=== PATIENT | female | born 1965 | race Caucasian/White ===

== ENCOUNTER 2019-01-10 14:15 | Inpatient (IN) | payer MEDICARE, MEDICAID ==
[2019-01-13] MEDS ORDERED: Dextrose 5%-Lactated Ringers 1,000 ML IV SCH ×2 (08:00→08:45)
[2019-01-13] MEDS ORDERED: Gabapentin 300 MG Cap PO ONE ×2 (08:00→08:45)
[2019-01-13] MEDS ORDERED: Acetaminophen 500 MG Tab PO ONE ×2 (08:00→08:45)
[2019-01-13] MEDS ORDERED: Celecoxib 200 MG Cap PO ONE ×2 (08:00→08:45)
[2019-01-13] MEDS ORDERED: cefOXitin 2 GM in Sodium Chloride 0.9% 50 ML IV ONE (10:15)
[2019-01-13] MEDS ORDERED: fentaNYL 250 MCG/5 ML SDV ONE ×2 (10:24→11:52)
[2019-01-13] MEDS ORDERED: Ondansetron 4 MG/2 ML SDV ONE (10:25)
[2019-01-13] MEDS ORDERED: Propofol 200 MG/20 ML SDV ONE (10:25)
[2019-01-13] MEDS ORDERED: Neostigmine Methylsulfate 1 MG/ML 5 ML Syringe ONE (10:25)
[2019-01-13] MEDS ORDERED: Glycopyrrolate 0.2 MG/ML 5 ML MDV ONE (10:25)
[2019-01-13] MEDS ORDERED: Rocuronium 50 MG/5 ML Vial ONE ×2 (10:25→12:40)
[2019-01-13] MEDS ORDERED: Dexamethasone 4 MG/ML SDV ONE (10:25)
[2019-01-13] MEDS ORDERED: Succinylcholine 200 MG/10 ML MDV ONE (10:25)
[2019-01-13] MEDS ORDERED: Ketamine 500 MG/5 ML MDV IV SCH (10:30)
[2019-01-13] MEDS ORDERED: Lidocaine 2% 100 MG/5 ML Syringe IVPUSH SCH (10:30)
[2019-01-13] MEDS ORDERED: Ketamine 50 MG in Sodium Chloride 0.9% 49.5 ML IV SCH (10:30)
[2019-01-13] MEDS ORDERED: Meropenem 500 MG SDV ONE (12:06)
[2019-01-13] MEDS ORDERED: ePHEDrine 50 MG/ML SDV ONE (12:16)
[2019-01-13] MEDS: Tranexamic Acid 1,000 MG in Sodium Chloride 0.9% 50 ML IV ONE ×2 (13:00→16:00)
[2019-01-13] MEDS ORDERED: diphenhydrAMINE 50 MG/ML SDV IVPUSH PRN ×2 (14:27→15:53)
[2019-01-13] MEDS ORDERED: Ondansetron 4 MG/2 ML SDV IVPUSH PRN ×2 (14:27→15:53)
[2019-01-13] MEDS ORDERED: Naloxone 0.4 MG/ML SDV IVPUSH PRN (14:27)
[2019-01-13] MEDS ORDERED: diphenhydrAMINE 25 MG Cap PO PRN (14:27)
[2019-01-13] MEDS ORDERED: Naloxone 0.4 MG/ML SDV IV PRN (14:30)
[2019-01-13] MEDS: HYDROmorphone/Normal Saline 15 MG/30 ML PCA IV PRN (14:41)
[2019-01-13] MEDS ORDERED: hydrOXYzine HCL 100 MG/2 ML SDV IM ONE (14:48)
[2019-01-13] MEDS: Lidocaine 0.4%/D5W 2 GM/500 ML BAG IV SCH (15:42)
[2019-01-13] MEDS ORDERED: Metoclopramide 10 MG/2 ML SDV IVPUSH PRN (15:53)
[2019-01-13] MEDS ORDERED: Labetalol 20 MG/4 ML Syringe IVPUSH PRN (15:53)
[2019-01-13] MEDS: Cyclobenzaprine 10 MG Tab PO PRN (15:59)
[2019-01-13] MEDS ORDERED: Tranexamic Acid 1,000 MG in Sodium Chloride 0.9% 50 ML IV ONE (16:30)
[2019-01-13] MEDS ORDERED: MVI, Adult with Vitamin K 10 ML, Thiamine 200 MG, Chromium/Copper/Mang/Selen/Zn 1 ML in... IV SCH ×4 (17:00)
[2019-01-13] MEDS ORDERED: Scopolamine 1.5 MG Transdermal Patch TOP SCH (17:00)
[2019-01-13] MEDS: Acetaminophen Soln 650 MG/20.3 ML UD Cup PO SCH ×2 (17:10→23:37)
[2019-01-13] MEDS: cefOXitin 2 GM in Sodium Chloride 0.9% 50 ML IV SCH ×2 (17:20→23:36)
[2019-01-13] MEDS ORDERED: Pantoprazole 40 MG Vial IVPUSH SCH (18:00)
[2019-01-13] MEDS: hydrOXYzine HCL 100 MG/2 ML SDV IM PRN (20:17)
[2019-01-13] MEDS: Heparin Sodium 5,000 Units/ML Vial SUBCUT SCH (20:25)
[2019-01-13] MEDS: Gabapentin 250 MG/5 ML Solution ML 470 ML Bottle PO SCH (20:25)
[2019-01-13] MEDS: Dextrose 5%-Lactated Ringers 1,000 ML IV SCH (23:37)
[2019-01-14] MEDS: Cyclobenzaprine 10 MG Tab PO PRN ×2 (00:56→10:00)
[2019-01-14] MEDS: hydrOXYzine HCL 100 MG/2 ML SDV IM PRN (00:57)
[2019-01-14] MEDS ORDERED: Iopamidol 612 MG/ML 50 ML SDV PO ONE (04:06)
[2019-01-14] MEDS: Dextrose 5%-Lactated Ringers 1,000 ML IV SCH (05:14)
[2019-01-14] MEDS: Acetaminophen Soln 650 MG/20.3 ML UD Cup PO SCH ×4 (05:14→23:00)
[2019-01-14] MEDS: cefOXitin 2 GM in Sodium Chloride 0.9% 50 ML IV SCH ×4 (05:14→23:00)
--- NOTE | 2019-01-14 05:27 | CRLCR ---
Indication: Revision of Shira-en-Y Technique: Two frontal views of the abdomen obtained following ingestion of iodinated contrast agent and 0 and 15 minutes delays. Comparison: None Findings/Impression: There is transit of oral contrast through the stomach and into the small bowel. No extravasated extraluminal contrast is appreciated. Surgical drains are in place. Skin alexis overlie the abdomen. Dictated by Erna Vargas MD @ Jan 14 2019 5:25AM Signed by Dr. Erna Vargas @ Jan 14 2019 5:25AM
[2019-01-14] MEDS ORDERED: Ondansetron 4 MG Tab.DIS PO PRN (08:01)
[2019-01-14] MEDS ORDERED: Dextrose 5%-Lactated Ringers 1,000 ML IV SCH ×2 (08:02→08:45)
[2019-01-14] MEDS ORDERED: Cyclobenzaprine 10 MG Tab PO PRN (08:04)
[2019-01-14] MEDS ORDERED: Docusate Sodium 100 MG Cap PO PRN (08:04)
[2019-01-14] MEDS: Celecoxib 200 MG Cap PO SCH (09:00)
[2019-01-14] MEDS ORDERED: Non-Formulary Medication 1 Each (Aripiprazole [Abilify] 20 MG) PO SCH (09:00)
[2019-01-14] MEDS ORDERED: Non-Formulary Medication 1 Each (Buspirone [Buspar] 15 MG) PO SCH (09:00)
[2019-01-14] MEDS ORDERED: ARIPiprazole 10 MG Tab PO SCH (09:00)
[2019-01-14] MEDS: busPIRone 10 MG, busPIRone 5 MG PO SCH ×4 (09:01→20:37)
[2019-01-14] MEDS: Heparin Sodium 5,000 Units/ML Vial SUBCUT SCH ×2 (09:01→20:34)
[2019-01-14] MEDS: DULoxetine 20 MG Cap PO SCH (09:01)
[2019-01-14] MEDS: SCOPOLAMINE PATCH CHECK TOP SCH (09:02)
[2019-01-14] MEDS: Gabapentin 250 MG/5 ML Solution ML 470 ML Bottle PO SCH ×3 (09:05→20:34)
[2019-01-14] MEDS ORDERED: Sodium Ferric Gluconate Cmplex 250 MG in Sodium Chloride 0.9% 100 ML IV SCH (10:00)
--- NOTE | 2019-01-14 11:46 | PN ---
DATE OF SERVICE: 01/14/2019 SUBJECTIVE: Naty is postop day #1. Her upper GI was normal. Vital signs have been stable. She has been up, ambulating. She has used her incentive spirometer. She has no other concerns or questions today. OBJECTIVE: GENERAL: Naty Bradley is a 53-year-old female. VITAL SIGNS: TPR is 98.7, 83, 18. Blood pressure 139/56. HEENT: Negative. NECK: Supple. HEART: Regular rate and rhythm. LUNGS: Clear. ABDOMEN: Dressings dry and intact. Abdominal binder is on. EXTREMITIES: Without peripheral edema. ASSESSMENT: Exploratory laparotomy and lysis of adhesions: 1. Esophagogastrectomy with Shira-en-Y. 2. Repair of recurrent incarcerated inguinal hernia. 3. Placement of intraperitoneal mesh for persistent marginal ulcers at and around the jejunojejunostomy junction with extensive scarring. 4. Recurrent incisional hernia. 5. Placement of intraperitoneal mesh. Date of surgery, 01/13/2019. Surgeon, Yazan Porter MD. PLAN: 1. Decrease IV to 100 mL per hour. 2. Discontinue Murphy. 3. Step 2 gastric bypass diet with no cereal. 4. Dietary consult, which is already ordered. The patient is lactose intolerance. 5. Abilify 20 mg daily. 6. BuSpar 15 mg p.o. b.i.d. 7. Flexeril 10 mg p.o. t.i.d. p.r.n. muscle spasm. 8. Colace 100 mg b.i.d. p.r.n. 9. Sinequan (doxepin) 20 mg p.o. at bedtime. 10.Cymbalta 20 mg daily. 11.Lactaid 3000-unit tablets 1 three times a day with meals. 12.Levothyroxine 25 mcg p.o. before breakfast. 13.Prazosin (Minipress) 1 mg capsule at bedtime. 14.Good pulmonary toilet. 15.We will evaluate p.r.n. or in a.m. Jessica Sierra PA-C /[id number]
[2019-01-14] MEDS ORDERED: LACTASE PO SCH (12:00)
[2019-01-14] MEDS: Lidocaine 0.4%/D5W 2 GM/500 ML BAG IV SCH (12:18)
[2019-01-14] MEDS: LACTAID PO SCH ×2 (12:24→16:37)
[2019-01-14] MEDS ORDERED: Benzocaine/Cetylpyridinium/Menthol Lozenge MUCMEM PRN (13:32)
[2019-01-14] MEDS: Sodium Ferric Gluconate Cmplex 250 MG in Sodium Chloride 0.9% 100 ML IV SCH (14:14)
[2019-01-14] MEDS ORDERED: MVI, Adult with Vitamin K 10 ML, Thiamine 200 MG, Chromium/Copper/Mang/Selen/Zn 1 ML in... IV SCH ×4 (16:00)
[2019-01-14] MEDS: Pantoprazole 40 MG Delayed-Release Granules 1 Packet PO SCH (16:38)
[2019-01-14] MEDS: Doxepin 10 MG Cap PO SCH (20:35)
[2019-01-14] MEDS: Prazosin 1 MG Cap PO SCH (20:35)
[2019-01-14] MEDS: HYDROmorphone/Normal Saline 15 MG/30 ML PCA IV PRN (20:50)
[2019-01-15] MEDS: Cyclobenzaprine 10 MG Tab PO PRN ×2 (03:16→12:07)
[2019-01-15] MEDS: cefOXitin 2 GM in Sodium Chloride 0.9% 50 ML IV SCH ×2 (05:38→13:17)
[2019-01-15] MEDS: Acetaminophen Soln 650 MG/20.3 ML UD Cup PO SCH ×4 (05:38→23:39)
[2019-01-15] MEDS ORDERED: Dextrose 5%-Lactated Ringers 1,000 ML IV SCH (08:09)
[2019-01-15] MEDS: busPIRone 10 MG, busPIRone 5 MG PO SCH ×4 (08:26→20:44)
[2019-01-15] MEDS: Celecoxib 200 MG Cap PO SCH (08:26)
[2019-01-15] MEDS: Levothyroxine 25 MCG Tab PO SCH (08:26)
[2019-01-15] MEDS: DULoxetine 20 MG Cap PO SCH (08:27)
[2019-01-15] MEDS: LACTAID PO SCH ×3 (08:27→18:17)
[2019-01-15] MEDS: Heparin Sodium 5,000 Units/ML Vial SUBCUT SCH ×2 (08:27→20:44)
[2019-01-15] MEDS: SCOPOLAMINE PATCH CHECK TOP SCH (08:28)
[2019-01-15] MEDS: Gabapentin 250 MG/5 ML Solution ML 470 ML Bottle PO SCH ×3 (08:31→20:43)
[2019-01-15] MEDS ORDERED: Cyanocobalamin (Vitamin B12) 1,000 MCG/ML SDV IM ONE (09:00)
--- NOTE | 2019-01-15 11:23 | PN ---
DATE OF SERVICE: 01/15/2019 SUBJECTIVE: Naty is postoperative day #2. She has been afebrile. Oral intake, step 2 gastric bypass diet without cereal, 2160. Urine output 2300. ANNE drains 1, 2, and 3 put out 80, 115, and 80. The 2 ANNE drains have bile in them which was to be expected. REVIEW OF SYSTEMS: Remainder of review of systems negative for any pertinent positives and negatives. OBJECTIVE: GENERAL: Naty Bradley is a 53-year-old female. VITAL SIGNS: TPR is 96.9, 70, 19. Blood pressure 114/61. These vital signs are from 0300. HEENT: Negative. HEART: Regular rate and rhythm. LUNGS: Clear. ABDOMEN: Dressings dry and intact. Three ANNE drains as noted above. EXTREMITIES: Without peripheral edema. ASSESSMENT: Exploratory laparotomy and lysis of adhesions: 1. Esophagogastrectomy with Shira-en-Y. 2. Repair of recurrent incarcerated inguinal hernia. 3. Placement of intraperitoneal mesh for persistent marginal ulcers at and around the jejunojejunostomy junction with extensive scarring. 4. Recurrent incisional hernia. 5. Placement of intraperitoneal mesh. Date of surgery, 01/13/2019. Surgeon, Yazan Porter MD. PLAN: 1. Teach the patient to strip, empty, measure, and record ANNE drains each separately. 2. Saline lock IV, but the patient is requesting to keep STEAM TENDER going for pain control. 3. Continue to ambulate and use incentive spirometer. 4. We will evaluate p.r.n. or in a.m. Jessica Sierra PA-C /[id number]
[2019-01-15] MEDS: Sodium Ferric Gluconate Cmplex 250 MG in Sodium Chloride 0.9% 100 ML IV SCH (15:26)
[2019-01-15] MEDS: Pantoprazole 40 MG Delayed-Release Granules 1 Packet PO SCH (15:37)
[2019-01-15] MEDS: Doxepin 10 MG Cap PO SCH (20:44)
[2019-01-15] MEDS: Prazosin 1 MG Cap PO SCH (20:45)
[2019-01-16] MEDS: Acetaminophen Soln 650 MG/20.3 ML UD Cup PO SCH ×4 (06:15→23:23)
[2019-01-16] MEDS: Levothyroxine 25 MCG Tab PO SCH (07:36)
[2019-01-16] MEDS ORDERED: Magnesium Hydroxide 400 MG/5 ML Susp 30 ML Cup PO ONE (09:00)
[2019-01-16] MEDS: DULoxetine 20 MG Cap PO SCH (09:02)
[2019-01-16] MEDS: busPIRone 10 MG, busPIRone 5 MG PO SCH ×4 (09:02→20:33)
[2019-01-16] MEDS: LACTAID PO SCH ×3 (09:02→16:09)
[2019-01-16] MEDS: Celecoxib 200 MG Cap PO SCH (09:02)
[2019-01-16] MEDS: Heparin Sodium 5,000 Units/ML Vial SUBCUT SCH ×2 (09:03→20:35)
[2019-01-16] MEDS: Gabapentin 250 MG/5 ML Solution ML 470 ML Bottle PO SCH ×3 (09:03→20:48)
[2019-01-16] MEDS ORDERED: Bisacodyl 5 MG Tab PO ONE (10:00)
--- NOTE | 2019-01-16 13:12 | PN ---
DATE OF SERVICE: 01/16/2019 SUBJECTIVE: Naty's IV infiltrated. She was switched to oral pain medication. She remains to have bile in 2 of those ANNE drains. The patient was taught to do home ANNE drain care. OBJECTIVE: VITAL SIGNS: Have been stable. She has been afebrile. Oral intake 0, and urine output 2024. ANNE drains have put out 65, 70, and 25 and color as above. HEENT: Negative. NECK: Supple. HEART: Regular rate and rhythm. LUNGS: Clear. ABDOMEN: Dressings dry and intact. ANNE drains as above and abdominal binder is on. EXTREMITIES: Without peripheral edema. ASSESSMENT: Exploratory laparotomy and lysis of adhesions: 1. Esophagogastrectomy with Shira-en-Y. 2. Repair of recurrent incarcerated inguinal hernia. 3. Placement of intraperitoneal mesh for persistent marginal ulcers at and around the jejunojejunostomy junction with extensive scarring. 4. Recurrent incisional hernia. 5. Placement of intraperitoneal mesh. Date of surgery, 01/13/2019. Surgeon, Yazan Porter MD. PLAN: 1. Continue to teach ANNE drain. 2. Plan discharge in a.m. 3. Continue to work on incentive spirometer and ambulate. 4. We will evaluate p.r.n. or in a.m. 5. The patient will be given milk of magnesia 30 mL, followed in 1 hour by Dulcolax 20 mg tab. Jessica Sierra PA-C /[id number]
[2019-01-16] MEDS: Pantoprazole 40 MG Delayed-Release Granules 1 Packet PO SCH (15:33)
[2019-01-16] MEDS: Cyclobenzaprine 10 MG Tab PO PRN (17:51)
[2019-01-16] MEDS: Prazosin 1 MG Cap PO SCH (20:34)
[2019-01-16] MEDS: Doxepin 10 MG Cap PO SCH (20:34)
[2019-01-17] MEDS: Cyclobenzaprine 10 MG Tab PO PRN (02:47)
[2019-01-17] MEDS: Levothyroxine 25 MCG Tab PO SCH (07:23)
[2019-01-17] MEDS: Acetaminophen Soln 650 MG/20.3 ML UD Cup PO SCH (07:23)
[2019-01-17] MEDS: Heparin Sodium 5,000 Units/ML Vial SUBCUT SCH (08:24)
[2019-01-17] MEDS: DULoxetine 20 MG Cap PO SCH (08:24)
[2019-01-17] MEDS: Celecoxib 200 MG Cap PO SCH (08:24)
[2019-01-17] MEDS: LACTAID PO SCH (08:27)
[2019-01-17] MEDS: busPIRone 10 MG, busPIRone 5 MG PO SCH ×2 (08:27)
[2019-01-17] MEDS: Gabapentin 250 MG/5 ML Solution ML 470 ML Bottle PO SCH (08:35)
--- NOTE | 2019-01-17 13:37 | DISCH ---
ADMISSION DIAGNOSES: 1. Persistent marginal ulcers. 2. Shira-en-Y gastric bypass surgery. 3. Unspecified malabsorption. 4. Vitamin B12 deficiency. 5. Vitamin D deficiency. 6. Iron deficiency. 7. Reactive hypoglycemia after GI surgery. 8. Hypothyroidism. 9. Major depression disorder. 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 11.Spinal stenosis. 12.Myofascial pain. 13.Memory loss. 14.Post-traumatic stress disorder. 15.Upper extremity weakness. 16.Polypharmacy. 17."Treatment agreement". DISCHARGE DIAGNOSES: Exploratory laparotomy with lysis of adhesions: 1. Esophagogastrectomy with Shira-en-Y. 2. Repair of recurrent incarcerated hernia. 3. Placement of intraperitoneal mesh for persistent marginal ulcers at and around the jejunojejunostomy junction with extensive scarring. 4. Recurrent incisional hernia. 5. Placement of intraperitoneal mesh. 6. Date of surgery: 01/13/2019. Surgeon: Yazan Porter MD. HISTORY: Naty Bradley is a 53-year-old female with above chief complaint. After preoperative evaluation and discussion of possible risks, she wished to proceed with surgical procedure. HOSPITAL COURSE: Naty had her surgery on 01/13/2019. She had no operative complications. On postoperative day #1, she was started on a step 1 gastric bypass diet and her routine prescription medications. On postoperative day #2, she was advanced to step 2 gastric bypass diet with no cereal, nothing thicker than milk. She was changed to oral pain medication. Her activity was good. She was independently moving in her room. She was using the incentive spirometer as directed and was able to be discharged to home on 01/17/2019 with no complications. She did receive dietary instruction. She will be discharged with her 3 ANNE drains due to some bile that remains in the drains. OBJECTIVE: GENERAL: Naty Bradley is a 53-year-old female. VITAL SIGNS: Height is 5 feet 8 inches, weight is 227 pounds, BMI is 34. TPR is 98.4, 72, 20, blood pressure 115/58. HEENT: Negative. NECK: Supple. HEART: Regular rate and rhythm. LUNGS: Clear. ABDOMEN: Stapled incision looks good. She does have 3 ANNE drains which have bile in all 3, very light. Abdominal binder has been on. EXTREMITIES: Without peripheral edema. DISPOSITION: Discharged to home. CONDITION: Stable and improving. FOLLOWUP: Appointment with Jessica Sierra PA-C, on 01/21/2019 at 12 p.m. at [place], [place]. HOME MEDICATIONS: 1. Celebrex 200 mg p.o. daily, #14. 2. Colace 100 mg b.i.d. She is to resume home medication of: 1. Tylenol 650 mg every 6 hours. 2. Maalox as directed. 3. Ascorbic acid 500 mg daily. 4. Vitamin B12 1000 injection every 10 days. 5. Flexeril 10 mg oral 3 times a day p.r.n. muscle spasms. 6. Cymbalta 20 mg daily. 7. Colace 100 mg twice daily. 8. Doxepin/Sinequan 20 mg at bedtime. 9. Vitamin D2 50,000 International Units 2 times a week. 10.Ferrous sulfate 325 oral 3 times daily. 11.Gabapentin 300 mg oral 3 times a day. 12.Levothyroxine 25 mcg oral before breakfast. 13.Lidocaine viscous 10 mL oral p.r.n. as directed. 14.Zofran 4 mg every 8 hours p.r.n. nausea. 15.MiraLax 17 g daily. 16.Minipress (prazosin) 1 mg oral at bedtime. 17.BuSpar 15 mg oral twice daily. 18.Oxycodone 10, 1 to 2 tablets q.4 hours p.r.n. pain. DIET: Step 2 gastric bypass diet with no cereal, nothing thicker than milk until 01/28/2019. ACTIVITY: No lifting greater than 10 pounds for 6 weeks. Walk at least 6 times inside your home. Driving: Do not drive for 1 week or while on narcotic pain medication. DISCHARGE INSTRUCTIONS: Notify provider if any fever, increased pain, nausea, or vomiting. Keep site clean and dry. Wear abdominal binder for 6 weeks and then as tolerated. SPECIAL INSTRUCTIONS: 1. Use incentive spirometer 10 times every hour while awake for 1 week. 2. Strip, empty, measure and record ANNE drains 4 times a day. 3. Bring record of the amount of drainage and color of drainage to clinic appointments.
--- NOTE | 2019-01-22 15:58 | OR ---
DATE OF PROCEDURE: 01/13/2019 SURGEON: Yazan Porter MD PREOPERATIVE DIAGNOSIS: Persistent marginal ulcer at the area around the gastrojejunostomy. POSTOPERATIVE DIAGNOSES: 1. Persistent marginal ulcer at the area around the gastrojejunostomy. 2. Recurrent incisional hernia. 3. Intraperitoneal mesh potentially exposed to gastrointestinal tract contents and had risk for infection. OPERATIVE PROCEDURE: 1. Exploratory laparotomy with lysis of adhesions in: a. Esophagogastrectomy with Shira-en-Y esophagojejunostomy (98139). b. Repair of recurrent incisional hernia (85337). c. Removal of intraperitoneal mesh (43816). ANESTHESIA: General. ANIMAL EVISCERATOR: Jessica Sierra PA-C. and Fabian Rivas MS-3. INDICATION FOR PROCEDURE: This is a 53-year-old with large gastric pouch, status post previous Shira-en-Y gastric bypass many years ago. This is involved with persistent marginal ulcers with ongoing pain and some dysphagia, despite extensive medical management. Plan is to proceed with an operative procedure with proximal gastrectomy or potentially higher than that, if necessary, based on the amount of inflammation at the area around the esophagogastric junction. Potential risks of the procedure such as bleeding, infection, leaks from various GI tract closures, problems with bowel obstruction over time, as well as possibility of cardiopulmonary, septic, or hemorrhagic complications leading to were discussed, and the patient wishes to proceed. DETAILS OF PROCEDURE: The patient was taken to the operating room and placed in a supine position. After general endotracheal anesthesia was induced, she was converted to a lithotomy position, Murphy catheter was inserted, and the abdomen was prepped and draped. The previous midline incision was then reused and carried down through the skin and subcutaneous tissue. Some adhesions were taken down between the omentum and the anterior abdominal wall. Potentially, the dissection continued upward into the area of the gastric pouch, which had quite a bit of inflammation and adherence to the liver to that area with some of the liver capsule attached to the underlying inflammatory mass, and there were 2 areas of small bowel leak noted, which were suture-ligated with a [id number] stitches of 3-0 Vicryl stitch. Potentially, the area around the Shira limb was then able to be identified and was divided more or less flush with the gastrojejunostomy with a MARCOS stapler. The mesentery at that portion of the limb was also divided with MARCOS alexis. As one dissected more proximally, there was quite dense adherence between the gastrojejunostomy and the underlying pancreas and splenic vessels. This was eventually taken down with a combination of blunt dissection and division with surgical alexis. As one approached the area of the esophagogastric junction, that area was still intensely inflamed and was felt not to be a safe plane for division of the GI tract. Given this, the dissection came somewhat up onto the esophagus, where the distal esophagus was then divided with MARCOS black loads. The separation between the bypassed portion of the stomach and the gastric pouch was ill- defined. Given this was in mid body, the stomach was divided with the MARCOS stapler, and the gastric attachments to lie along with both the lesser and greater curvature with MARCOS alexis, and the remaining attachments of posteriorly were then divided with MARCOS alexis as well and the specimen consisting of distal esophagus, gastric pouch, gastrojejunostomy, and the midportion of the area of the bypassed stomach was then delivered from the field. The Shira limb was then assessed at this point and was felt to be still satisfactorily long and was measured at around 90 cm. The biliopancreatic limb, given this patient had had her surgery in the early , was quite long but otherwise appeared to be unremarkable. The anvil of a 25 mm EEA stapler was then attached to Loíza sump-type tube. The latter was brought down through the mouth and taken out through a small opening in the divided the esophagus. The divided end of the Shira limb, which was at this point replaced through a retrocolic tunnel, was opened and the main body EEA stapler passed several centimeters into the lumen of the small bowel, brought up the anvil and united with it, thus creating the esophagojejunostomy. Upon removal of stapler, double donuts of mucosa were noted within. Small bowel was closed off with a vascular staple line. The esophagojejunostomy was reinforced with some 3-0 Vicryl seromuscular stitch, along with fibrin sealant. The abdomen was irrigated with antibiotic-containing saline solution, and at that point attention was taken to closing the abdominal wall. Of note, upon entering the abdomen, the patient was noted to have an area of mesh formation in the upper abdomen extending somewhat down toward the umbilicus. A portion of this mesh was then exposed and was removed. This was to minimize chances of infection. There was recurrent hernia in the upper aspect of this in the mid epigastrium, and that area was dissected free and reflected back toward the peritoneal cavity. Some mesh remained within the abdominal cavity, but this appeared to be well incorporated within the soft tissues and was felt to be smaller risk for any infection if left in place. The midline fascia was then approximated with #2 Vicryl stitch, which included repair of the recurrent incisional hernia. The patient had 3 Giacomo-Martinez drains placed prior to closure, 2 in the left subcostal area placed adjacent to the esophagojejunostomy and one on the right side, which was placed underneath the liver to collect any postoperative bile leak that might occur. After the fascial closure, the subcutaneous tissue approximated with 2-0 Vicryl stitch and skin with alexis and dressing was applied. The patient was taken to the recovery room in satisfactory condition. Physician operator/assistant foreman, Jessica Sierra, played an essential role in assisting in this case, helping to position the patient, retract structures as needed, as well as suturing and cutting sutures as needed and applying alexis. Her presence improved patient safety and decreased operative time. Yazan Porter MD /[id number]
== END 2019-01-17 10:15 | disposition home or self-care (01) | DRG 327 ==
LOC: JP.SDS 01-13 08:07 → JP.MS 01-13 08:07 → EDSTATUS 01-13 10:15 → JP.2SS 01-13 14:25 → UNDOADMIN 01-13 14:25
PROVIDERS: ADMIT Surgery; ATTEND Surgery
PROC: 0D150ZA Bypass Esophagus to Jejunum, Open Approach (ICD-10-PCS; principal; 2019-01-13)
PROC: 0WQF0ZZ Repair Abdominal Wall, Open Approach (ICD-10-PCS; 2019-01-13)
PROC: 0WPG0JZ Removal of Synthetic Substitute from Peritoneal Cavity, Open Approach (ICD-10-PCS; 2019-01-13)
PROC: 0DNU0ZZ Release Omentum, Open Approach (ICD-10-PCS; 2019-01-13)
DX: K43.0 Incisional hernia with obstruction, without gangrene (principal); K91.2 Postsurgical malabsorption, not elsewhere classified; K28.9 Gastrojejunal ulcer, unspecified as acute or chronic, without hemorrhage or perforation; E53.8 Deficiency of other specified B group vitamins; E55.9 Vitamin D deficiency, unspecified; D50.9 Iron deficiency anemia, unspecified; E03.9 Hypothyroidism, unspecified; F32.9 Major depressive disorder, single episode, unspecified; G31.84 Mild cognitive impairment of uncertain or unknown etiology; F43.10 Post-traumatic stress disorder, unspecified; R29.898 Other symptoms and signs involving the musculoskeletal system; M79.18 Myalgia, other site; M48.00 Spinal stenosis, site unspecified; R73.01 Impaired fasting glucose; I10 Essential (primary) hypertension; Z90.49 Acquired absence of other specified parts of digestive tract; Z88.8 Allergy status to other drugs, medicaments and biological substances; Z91.09 Other allergy status, other than to drugs and biological substances; Z88.5 Allergy status to narcotic agent
CPT/HCPCS: 36415; 74240; 80053; 83735; 83880; 84100; 85025; 86850; 86900; 86901; 88305; 88307; 94762; A9270-GY; C9113; J0171; J0330; J0694; J1100; J1170; J1644; J2001; J2185; J2405; J2704; J2710; J2795; J2916; J3010; J3410; J3411; J3420; J3490; J7050; J7121; Q9967